=== PATIENT | female | born 1950 | race Caucasian/White ===

== ENCOUNTER → 2016-07-01 | Outpatient (REF) | payer MEDICARE, OTHER | LOC: M SFHCWAGY 09:19 | PROVIDERS: ATTEND Nurse Practitioner Family | DX: Z12.12 Encounter for screening for malignant neoplasm of rectum (principal); N95.2 Postmenopausal atrophic vaginitis ==

== ENCOUNTER → 2016-07-01 | Outpatient (CLI) | payer MEDICARE, OTHER ==
--- NOTE | 2016-07-01 12:23 | REPMRS ---
Patient History The patient states she had a clinical breast exam in 06/2016. Patient is postmenopausal. No known family history of cancer. Digital Woman Screen Mammo: July 01, 2016 - Exam #: [id number] Bilateral CC and MLO view(s) were taken. Technologist: Avani Avery, Technologist Prior study comparison: June 30, 2015, digital woman screen mammo performed at [facility]. June 28, 2014, digital woman screen mammo performed at [facility]. May 29, 2013, digital woman screen mammo performed at [facility]. FINDINGS: There are scattered fibroglandular densities. There has been no change in the appearance of the mammogram from the prior studies. There is a mild amount of scattered fibroglandular density which is fairly symmetric. There is no interval development of dominant mass, architectural distortion, or clustered microcalcification suggestive of malignancy. ASSESSMENT: BI-RADS/ACR category 1 mammogram. Negative. Recommendation Routine screening mammogram in 1 year (for women over age 40). This mammogram was interpreted with the aid of an FDA-approved computer-aided dectection system. Electronically Signed By: Kasi Joyce MD 07/01/16 1598
== END ==
LOC: M WHC 08:52
PROVIDERS: ATTEND Nurse Practitioner Family
DX: Z12.31 Encounter for screening mammogram for malignant neoplasm of breast (principal); Z78.0 Asymptomatic menopausal state; Z12.4 Encounter for screening for malignant neoplasm of cervix; N95.2 Postmenopausal atrophic vaginitis; Z12.12 Encounter for screening for malignant neoplasm of rectum
CPT/HCPCS: 82270; G0101; G0123; G0202

== ENCOUNTER → 2017-08-30 | Outpatient (CLI) | payer MEDICARE, OTHER | LOC: M WHC 09:32 | DX: Z12.31 Encounter for screening mammogram for malignant neoplasm of breast (principal); Z01.419 Encounter for gynecological examination (general) (routine) without abnormal findings (principal); Z78.0 Asymptomatic menopausal state; Z12.12 Encounter for screening for malignant neoplasm of rectum; N95.2 Postmenopausal atrophic vaginitis | CPT/HCPCS: 77067 ==

== ENCOUNTER → 2018-07-06 | Outpatient (REF) | payer MEDICARE, OTHER | LOC: M LAB LCGH 15:04 | PROVIDERS: ATTEND Nurse Practitioner Family | DX: L82.1 Other seborrheic keratosis (principal) ==

== ENCOUNTER → 2018-09-07 | Outpatient (CLI) | payer MEDICARE, OTHER ==
--- NOTE | 2018-09-07 12:34 | REPMRS ---
Patient History The patient states she had a clinical breast exam in 08/2018. No known family history of cancer. Digital Woman Screen Mammo: September 07, 2018 - Exam #: [id number] Bilateral CC and MLO view(s) were taken. Technologist: Araceli Richmond, Technologist Prior study comparison: August 30, 2017, digital woman screen mammo performed at [facility]. July 01, 2016, digital woman screen mammo performed at [facility]. June 30, 2015, digital woman screen mammo performed at [facility]. FINDINGS: There are scattered fibroglandular densities. There has been no change in the appearance of the mammogram from the prior studies. There is a mild amount of scattered fibroglandular density which is fairly symmetric. There is no interval development of dominant mass, architectural distortion, or clustered microcalcification suggestive of malignancy. 3-D tomosynthesis shows no additional findings. Assessment: BI-RADS/ACR category 1 mammogram. Negative Mammogram. Recommendation Routine screening mammogram of both breasts in 1 year (for women over age 40). This patient's Lifetime Breast Cancer RIsk is estimated at 4.4 %. This mammogram was interpreted with the aid of an FDA-approved computer-aided dectection system. Electronically Signed By: Kasi Joyce MD 09/07/18 1097
== END ==
LOC: M WHC 09:43
PROVIDERS: ATTEND Nurse Practitioner Family
DX: Z01.419 Encounter for gynecological examination (general) (routine) without abnormal findings (principal); Z12.31 Encounter for screening mammogram for malignant neoplasm of breast
CPT/HCPCS: 77063; 77067; G0101

== ENCOUNTER → 2018-11-14 | Outpatient (REF) | payer MEDICARE, OTHER | LOC: M LAB LCGH 15:05 | PROVIDERS: ATTEND Physician Assistant | DX: L56.8 Other specified acute skin changes due to ultraviolet radiation (principal) ==

== ENCOUNTER → 2019-10-11 | Outpatient (CLI) | payer MEDICARE, OTHER ==
--- NOTE | 2019-10-11 10:30 | REPMRS ---
Patient History The patient states she had a clinical breast exam in September 2019. No known family history of cancer. 3D TOMOSYNTHESIS WAS PERFORMED. The [facility] lifetime risk for breast cancer is 4.2%. VOLPARA DENSITY A. Digital Woman Screen Mammo: October 11, 2019 - Exam #: [id number] Bilateral CC and MLO view(s) were taken. Technologist: Kathleen Perez, Technologist Prior study comparison: September 07, 2018, bilateral digital woman screen mammo performed at [facility]. August 30, 2017, digital woman screen mammo performed at [facility]. FINDINGS: There are scattered fibroglandular densities. There has been no change in the appearance of the mammogram from the prior studies. There is a mild amount of residual fibroglandular tissue which is fairly symmetric. There is no interval development of dominant mass, architectural distortion, or clustered microcalcification suggestive of malignancy. Assessment: BI-RADS/ACR category 1 mammogram. Negative Mammogram. Recommendation Routine screening mammogram in 1 year (for women over age 40). This mammogram was interpreted with the aid of an FDA-approved computer-aided dectection system. Electronically Signed By: Kit Smith MD 10/11/19 [id number]
== END ==
LOC: M WHC 08:47
PROVIDERS: ATTEND Nurse Practitioner Family
DX: Z12.31 Encounter for screening mammogram for malignant neoplasm of breast (principal); Z78.0 Asymptomatic menopausal state

== ENCOUNTER → 2020-10-14 | Outpatient (CLI) | payer MEDICARE, OTHER ==
--- NOTE | 2020-10-14 10:23 | REPMRS ---
Patient History The patient states she had a clinical breast exam in September 2020. Patient is postmenopausal. Family history of breast cancer at age 45 in niece. No Hormone Replacement Therapy Patient states no breast complaints today. Patient has signed MRS History Sheet. Digital Woman Screen Mammo: October 14, 2020 - Exam #: [id number] Bilateral CC and MLO view(s) were taken. Technologist: RT Kia Prior study comparison: October 11, 2019, bilateral digital woman screen mammo performed at [facility]. September 07, 2018, bilateral digital woman screen mammo performed at [facility]. August 30, 2017, digital woman screen mammo performed at [facility]. FINDINGS: The breast tissue is almost entirely fat. The Volpara volumetric breast density category is: A. There has been no change in the appearance of the mammogram from the prior studies. There is no interval development of dominant mass, architectural distortion, or grouped microcalcification typical of malignancy. 3-D tomosynthesis shows no additional findings. Assessment: BI-RADS/ACR category 1 mammogram. Negative Mammogram. Recommendation Routine screening mammogram of both breasts in 1 year (for women over age 40). This patient's [facility] Lifetime Breast Cancer RIsk is estimated at 3.9 %. This mammogram was interpreted with the aid of an FDA-approved computer-aided dectection system. Electronically Signed By: Kasi Joyce MD 10/14/20 3252
== END ==
LOC: M WHC 09:15
PROVIDERS: ATTEND Advanced Practice Midwife
DX: Z01.419 Encounter for gynecological examination (general) (routine) without abnormal findings (principal); Z12.31 Encounter for screening mammogram for malignant neoplasm of breast; Z78.0 Asymptomatic menopausal state; Z80.3 Family history of malignant neoplasm of breast
CPT/HCPCS: 77063; 77067; G0101

== ENCOUNTER → 2021-10-15 | Outpatient (CLI) | payer MEDICARE, OTHER | LOC: M WHC 09:51 | PROVIDERS: ATTEND Advanced Practice Midwife | DX: Z12.31 Encounter for screening mammogram for malignant neoplasm of breast (principal) ==

== ENCOUNTER → 2022-10-20 | Outpatient (CLI) | payer MEDICARE, OTHER | LOC: M WHC 09:45 | PROVIDERS: ATTEND Nurse Practitioner Family | DX: Z12.31 Encounter for screening mammogram for malignant neoplasm of breast (principal) ==

== ENCOUNTER → 2023-11-17 | Outpatient (CLI) | payer MEDICARE, OTHER | LOC: M WHC 14:45 | PROVIDERS: ATTEND Nurse Practitioner Family | DX: Z12.31 Encounter for screening mammogram for malignant neoplasm of breast (principal) | CPT/HCPCS: 77063; 77067; G0463 ==